=== PATIENT | male | born 1995 | race Caucasian/White ===

== ENCOUNTER 2019-04-02 16:40 | Inpatient (IN) ==
[2019-04-02] MEDS ORDERED: SODIUM CHLORIDE 0.9% 1,000 ML IV STA (17:30)
[2019-04-02 17:59] LABS: Basophils # 0.1 10*3/uL (0.0-0.2); Basophils % 0.3 % (0.0-0.8); Hematocrit 48.4 VOL% (42.0-52.0); Hemoglobin 16.8 GM/DL (14.0-18.0); Immature Granulocytes % 1.3 %; Immature Granulocytes Absolute 0.33 #; Lymphocytes # 1.1 10*3/uL (1.4-4.0); Lymphocytes % 4.4 % (21.2-54.2); Mean Corpuscular HGB Conc 34.7 GM/DL (32-36); Mean Corpuscular Volume 89.3 FL (87-102); Mean Platelet Volume 10.3 FL (9.6-12.0); Monocytes % 4.4 % (1.7-12.7); Neutrophils % 89.6 % (38.7-73.9); Platelet Count 239 T/CUMM (130-400); Red Blood Count 5.42 MC/CUMM (3.8-5.5); Red Cell Distribution Width 13.6 % (9.3-17.3); White Blood Count 26.1 T/CUMM (4-12)
[2019-04-02 18:13] LABS: Alanine Aminotransferase 26 U/L (16-61); Alkaline Phosphatase 85 U/L (45-117); Aspartate Amino Transferase 40 U/L (0-37); Blood Urea Nitrogen 13 MG/DL (7-18); Calcium 8.6 MG/DL (8.5-10.1); Estimated Glom Filtration Rate 138 ML/MIN; Glucose 107 MG/DL (74-106); Osmolality,Calculated 272.8 MOS/KG (273-304); Total Protein 7.5 G/DL (6.4-8.3)
[2019-04-02 18:46] LABS: Barbiturates Screen,Urine Negative (Negative); Benzodiazepines Screen,Urine Positive (Negative); Cannabinoid Screen,Urine Positive (Negative); Opiate Screen,Urine Negative (Negative); Phencyclidine Screen,Urine Negative (Negative)
[2019-04-02] MEDS ORDERED: LORazepam 2 MG/1 ML VIAL IV STA (18:48)
[2019-04-02] MEDS ORDERED: LORazepam 2 MG/1 ML VIAL ONE (18:49)
[2019-04-02 18:51] LABS: Apearance,Urine CLEAR (Clear); Bilirubin,Urine Negative (Negative); Blood, Urine Small mg/dL (Negative); Glucose,Urine (UA) Negative (Negative); Ketones,Urine 80 mg/dL (Negative); Mucus,Urine Many /LPF (Occasional); Nitrite,Urine Negative (Negative); Protein,Urine 30 MG/DL; RBC,Urine 1 /HPF (0-4); Squamous Epithelial Cell,Urine Occasional /HPF (0-10); Urine Color Yellow (Yellow); Urine Urobilinogen < 2.0 EU/DL (0.2-1.0); WBC,Urine 2 /HPF (0-6)
[2019-04-02] MEDS ORDERED: levETIRAcetam 500 MG/5 ML VIAL IV ONE (18:54)
[2019-04-02 19:03] LABS: Lymphocytes 5 % (20-55); Segmented Neutrophils 90 % (50-85); Total Cells Counted 100
[2019-04-02 19:04] LABS: Platelet Estimate Normal
[2019-04-02] MEDS ORDERED: ONDANSETRON 4 MG/2 ML VIAL IV PRN (22:53)
[2019-04-02] MEDS ORDERED: PROMETHAZINE 25 MG/1 ML VIAL IM PRN (22:53)
[2019-04-02] MEDS ORDERED: THIAMINE INJ 100 MG, FOLIC ACID INJ 1 MG, MULTIVITAMIN INJ 10 ML in SODIUM CHLORIDE 0.9... IV ONE (22:53)
[2019-04-02] MEDS ORDERED: ACETAMINOPHEN 325 MG TABLET PO PRN (22:53)
[2019-04-02] MEDS ORDERED: ALBUTEROL 2.5 MG/3 ML NEB RESP TX PRN (22:53)
[2019-04-02] MEDS ORDERED: METHOCARBAMOL 750 MG TABLET PO PRN (22:53)
[2019-04-02] MEDS ORDERED: LORazepam 2 MG/1 ML VIAL IV PRN ×2 (22:53)
[2019-04-02] MEDS: IBUPROFEN 600 MG TABLET PO PRN (23:37)
[2019-04-02] MEDS: chlordiazePOXIDE 25 MG CAPSULE PO SCH (23:37)
[2019-04-02] MEDS: SODIUM CHLORIDE 0.9% 1,000 ML IV SCH (23:43)
[2019-04-03 00:04] VITALS: BP 105/76
[2019-04-03 04:45] LABS: Basophils # 0.1 10*3/uL (0.0-0.2); Basophils % 0.2 % (0.0-0.8); Eosinophils % 0.1 % (0.00-10.9); Hematocrit 44.7 VOL% (42.0-52.0); Hemoglobin 15.4 GM/DL (14.0-18.0); Immature Granulocytes % 0.7 %; Immature Granulocytes Absolute 0.14 #; Lymphocytes # 3.8 10*3/uL (1.4-4.0); Mean Corpuscular HGB Conc 34.5 GM/DL (32-36); Mean Corpuscular Volume 90.5 FL (87-102); Mean Platelet Volume 10.6 FL (9.6-12.0); Monocytes % 7.3 % (1.7-12.7); Neutrophils % 73.7 % (38.7-73.9); Platelet Count 223 T/CUMM (130-400); Red Blood Count 4.94 MC/CUMM (3.8-5.5); Red Cell Distribution Width 13.7 % (9.3-17.3); White Blood Count 20.8 T/CUMM (4-12)
[2019-04-03 05:09] LABS: Atypical Lymphocytes Few; Lymphocytes 22 % (20-55); Microcytosis Slight; Ovalocytes Slight; Platelet Estimate Normal; Segmented Neutrophils 73 % (50-85); Total Cells Counted 100
[2019-04-03 05:09] LABS: Calcium 8.4 MG/DL (8.5-10.1)
[2019-04-03] MEDS: chlordiazePOXIDE 25 MG CAPSULE PO SCH ×4 (05:34→22:09)
[2019-04-03] MEDS ORDERED: MAGNESIUM SULF RIDER 2 GM in PREMIX 1 EACH IV PRN (06:13)
[2019-04-03] MEDS ORDERED: MAGNESIUM SULF RIDER 4 GM in PREMIX 1 EACH IV PRN (06:13)
[2019-04-03] MEDS: THIAMINE 100 MG TABLET PO SCH (08:55)
[2019-04-03] MEDS: POTASSIUM CHLORIDE 20 MEQ TABLET PO PRN ×3 (08:55→14:23)
[2019-04-03] MEDS: FOLIC ACID 1 MG TABLET PO SCH (08:55)
[2019-04-03] MEDS: MULTIVITAMIN (CENTRUM) TABLET PO SCH (08:56)
[2019-04-03] MEDS ORDERED: levETIRAcetam 500 MG TABLET PO SCH (09:00)
[2019-04-03] MEDS: SODIUM CHLORIDE 0.9% 1,000 ML IV SCH ×2 (10:47→19:31)
[2019-04-03] MEDS: IBUPROFEN 600 MG TABLET PO PRN ×2 (14:24→23:33)
[2019-04-03] MEDS: NICOTINE 21 MG/24 HR PATCH TRANSDERM PRN (17:37)
[2019-04-03] MEDS: levETIRAcetam 500 MG TABLET PO SCH (20:06)
[2019-04-03] MEDS: HydrOXYzine PAMOATE 25 MG CAPSULE PO PRN (23:35)
[2019-04-04 04:54] LABS: Basophils # 0.1 10*3/uL (0.0-0.2); Basophils % 0.7 % (0.0-0.8); Eosinophils # 0.1 10*3/uL (0.0-0.87); Eosinophils % 0.9 % (0.00-10.9); Hematocrit 42.9 VOL% (42.0-52.0); Hemoglobin 14.3 GM/DL (14.0-18.0); Immature Granulocytes % 0.5 %; Immature Granulocytes Absolute 0.06 #; Lymphocytes # 4.1 10*3/uL (1.4-4.0); Mean Corpuscular HGB Conc 33.3 GM/DL (32-36); Mean Corpuscular Volume 91.3 FL (87-102); Mean Platelet Volume 10.8 FL (9.6-12.0); Monocytes % 9.1 % (1.7-12.7); Neutrophils % 52.8 % (38.7-73.9); Red Cell Distribution Width 13.5 % (9.3-17.3)
[2019-04-04 05:06] LABS: Platelet Count 174 T/CUMM (130-400); White Blood Count 11.4 T/CUMM (4-12)
[2019-04-04 05:18] LABS: Calcium 8.1 MG/DL (8.5-10.1); Osmolality,Calculated 273.5 MOS/KG (273-304)
[2019-04-04] MEDS: SODIUM CHLORIDE 0.9% 1,000 ML IV SCH (05:22)
[2019-04-04] MEDS: chlordiazePOXIDE 25 MG CAPSULE PO SCH ×3 (06:37→23:29)
[2019-04-04] MEDS: POTASSIUM CHLORIDE 20 MEQ TABLET PO PRN ×4 (06:37→20:11)
[2019-04-04] MEDS: MULTIVITAMIN (CENTRUM) TABLET PO SCH (08:55)
[2019-04-04] MEDS: FOLIC ACID 1 MG TABLET PO SCH (08:55)
[2019-04-04] MEDS: THIAMINE 100 MG TABLET PO SCH (08:55)
[2019-04-04] MEDS: levETIRAcetam 500 MG TABLET PO SCH ×2 (08:58→20:11)
[2019-04-04] MEDS: ENOXAPARIN 40 MG/0.4 ML SYRINGE SUBCUT SCH ×2 (11:25→11:29)
[2019-04-04] MEDS: NICOTINE 21 MG/24 HR PATCH TRANSDERM PRN (11:25)
[2019-04-04] MEDS: IBUPROFEN 600 MG TABLET PO PRN (18:13)
[2019-04-04] MEDS: HydrOXYzine PAMOATE 25 MG CAPSULE PO PRN (23:30)
[2019-04-05] MEDS: chlordiazePOXIDE 25 MG CAPSULE PO SCH ×2 (04:47→10:57)
[2019-04-05] MEDS: FOLIC ACID 1 MG TABLET PO SCH (08:31)
[2019-04-05] MEDS: levETIRAcetam 500 MG TABLET PO SCH (08:31)
[2019-04-05] MEDS: MULTIVITAMIN (CENTRUM) TABLET PO SCH (08:31)
[2019-04-05] MEDS: THIAMINE 100 MG TABLET PO SCH (08:31)
[2019-04-05] MEDS: ENOXAPARIN 40 MG/0.4 ML SYRINGE SUBCUT SCH (10:31)
== END 2019-04-05 13:20 | disposition home or self-care (01) | DRG 101 ==
LOC: N.ED 16:40 → SUATTDRO 20:43 → N.EDINP 20:43 → N.CC 21:19
PROVIDERS: ADMIT Internal Medicine; ATTEND Internal Medicine